=== PATIENT | male | born 1965 | race Caucasian/White ===

== ENCOUNTER 2018-04-16 18:39 | Emergency (ER) | payer OTHER ==
[2018-04-16] MEDS ORDERED: APIXABAN 5 MG TAB PO ONE (18:56)
--- NOTE | 2018-04-16 18:56 | EDPHY ---
H & P Stated Complaint: from ultrasound +DVT L leg Time Seen by Provider: 04/16/18 18:52 HPI/ROS: HPI: This is a 52-year-old male who presents with Chief Complaint: Left leg DVT with positive ultrasound Location: Left calf Quality: Injury, swelling, bruising Duration: 6 days Signs and Symptoms: No bleeding, no radiation, no numbness, no weakness, no tingling, no incontinence, no decreased range of motion, + swelling, + pain, no fever, no chest pain, no palpitations, no shortness of breath Timing: Acute Severity: [id number] Context: Patient reports that he was skiing approximately 6 days ago and hit his left calf with his ski. He reports that he felt almost a popping sensation in left calf. He reported swelling and bruising over the next several days. He went to [facility] today and had x-rays that showed no fracture per the patient and was sent to [facility] for ultrasound imaging of the left calf. The ultrasound showed thrombus in 1 of the 2 paired peroneal veins in the proximal calf as well as involving intramuscular soleal vein branch. No evidence of DVT above the knee. No recent long distance travel. Nonsmoker. No history of clotting disorders in the family. Orthopedics placed patient in left Saldaña boot. Denies radiation, weakness, decreased range of motion. Modifying Factors: See above Comment: ROS: A comprehensive 10 system review of systems is otherwise negative aside from elements mentioned in the history of present illness. MEDICAL/SURGICAL/SOCIAL HISTORY: Medical history: Hypertension, hyperlipidemia Surgical history: Denies Social history: Nonsmoker, employed, . CONSTITUTIONAL: Well-developed, well-nourished, middle-aged white male, awake and alert, no obvious distress HEENT: Atraumatic and normocephalic. NECK: supple, no midline tenderness Cardiovascular: Normal S1/S2, regular rate, regular rhythm, without murmur rub or gallop. PULMONARY/CHEST: Symmetrical and nontender. no crepitus. Clear to auscultation bilaterally. Good air movement. No accessory muscle usage. ABDOMEN: Soft, nondistended, nontender. EXTREMITIES: 2/2 pulses, strength 5/5, left calf is twice the size of his right calf. There is significant ecchymosis and positive Homans sign. Left KNEE: no effusion, no medial and lateral joint line tenderness, full extension to 180, flexion to 120. No pain with varus and valgus exam. No pain with anterior drawer or posterior drawer test. Extensor mechanism intact. Left Ankle : Plantar flexion to 50, dorsiflexion to 20. Foot inversion to 35 degree. No tenderness/swelling Anterior talofibular ligament. No tenderness/swelling Calcaneofibular ligament, no tenderness/swelling posterior talofibular ligament , no tenderness/swelling posterior inferior tibiofibular ligament. Achilles tendon intact. DIP/PIP/MCP flexion/extension intact with good light touch sensation. no deformities, no clubbing, no cyanosis or edema. NEUROLOGICAL: no focal neuro deficits. GCS 15. Light touch sensation intact. SKIN: Warm and dry, no erythema. no rash. Good capillary refill. Source: Patient Exam Limitations: No limitations - Medical/Surgical History Hx Asthma: No Hx Chronic Respiratory Disease: No Hx Diabetes: No Hx Cardiac Disease: No Hx Renal Disease: No Hx Cirrhosis: No Hx Alcoholism: No Hx HIV/AIDS: No Hx Splenectomy or Spleen Trauma: No Other PMH: htn. hyperlipidemia - Social History Smoking Status: Never smoked Constitutional: Initial Vital Signs Temperature (C) 36.7 C 04/16/18 18:43 Heart Rate 75 04/16/18 18:43 Respiratory Rate 16 04/16/18 18:43 Blood Pressure 160/90 H 04/16/18 18:43 O2 Sat (%) 97 04/16/18 18:43 O2 Delivery Mode Room Air Allergies/Adverse Reactions: No Known Allergies Allergy (Unverified 04/16/18 18:42) Home Medications: Medication Instructions Recorded Apixaban [Eliquis 30-day Starter 1 kit PO AD #1 kit 04/16/18 Pack] Fenofibrate 04/16/18 HCTZ (*) 04/16/18 Medical Decision Making - Diagnostics Imaging Results: Imaging Impressions Extremity Venous Study 04/16/18 17:53 Impression: 1. Thrombus in one of the 2 paired peroneal veins in the proximal calf as well as involving intramuscular soleal vein branch. 2. No evidence of DVT above the knee. Findings discussed with Aurea Rey at 18:30 hour, 04/16/2018. ED Course/Re-evaluation: Vital signs reviewed and show mildly elevated blood pressure I-STAT H&H, coags, renal function ordered H&H stable. Please note, Coags and BMP not drawn by nursing staff prior to discharge. Given Eliquis 10 mg in the emergency room and 30 day starter pack No signs of neurovascular compromise/tenting of skin/compartment syndrome/ extremities and joints examined above and below area of concern and are neurovascularly intact/cellulitis. This patient was seen under the supervision of my secondary supervising physician. I evaluated care for this patient independently. Discussed this patient with Dr. Clifton who did not see the patient. Differential Diagnosis: Leg swelling including but not limited to hypoalbuminemia, congestive heart failure, cor pulmonale, chronic venous stasis and DVT. - Data Points Laboratory Results: Laboratory Results 04/16/18 19:00 04/16/18 19:00 WBC 5.96 10^3/uL 10^3/uL (3.80-9.50) RBC 4.86 10^6/uL 10^6/uL (4.40-6.38) Hgb 15.2 g/dL g/dL (13.7-17.5) Hct 44.2 % % (40.0-51.0) MCV 90.9 fL fL (81.5-99.8) MCH 31.3 pg pg (27.9-34.1) MCHC 34.4 g/dL g/dL (32.4-36.7) RDW 12.5 % % (11.5-15.2) Plt Count 251 10^3/uL 10^3/uL (150-400) MPV 11.3 fL fL (8.7-11.7) Neut % (Auto) 51.7 % % (39.3-74.2) Lymph % (Auto) 32.7 % % (15.0-45.0) [place] % (Auto) 12.4 % % (4.5-13.0) Eos % (Auto) 2.3 % % (0.6-7.6) Baso % (Auto) 0.7 % % (0.3-1.7) Nucleat RBC Rel Count 0.0 % % (0.0-0.2) Absolute Neuts (auto) 3.08 10^3/uL 10^3/uL (1.70-6.50) Absolute Lymphs (auto) 1.95 10^3/uL 10^3/uL (1.00-3.00) Absolute Monos (auto) 0.74 10^3/uL 10^3/uL (0.30-0.80) Absolute Eos (auto) 0.14 10^3/uL 10^3/uL (0.03-0.40) Absolute Basos (auto) 0.04 10^3/uL 10^3/uL (0.02-0.10) Absolute Nucleated RBC 0.00 10^3/uL 10^3/uL (0-0.01) Immature Gran % 0.2 % % (0.0-1.1) Immature Gran # 0.01 10^3/uL 10^3/uL (0.00-0.10) Medications Given: Discontinued Medications Apixaban (Eliquis) 10 mg PO EDNOW ONE Stop: 04/16/18 18:57 Last Admin: 04/16/18 19:15 Dose: 10 mg Departure - Departure Disposition: Home, Routine, Self-Care Clinical Impression: Left peroneal vein thrombosis Condition: Good Instructions: Apixaban (By mouth), Deep Vein Thrombosis (ED) Additional Instructions: Please take Eliquis as directed. Do not skip a dose. From the emergency room you will receive a started pack that is only for 1 month. Please understand that you will need to be on this medication for a minimum of 3 months. Continue to wear walking boot as directed per Orthopedics. Please follow-up with your primary care provider in the next 1-2 weeks. Follow-up with Orthopedics as directed. Referrals: ISIDRO MONTIEL [Other] - 5-7 days, call for appt. Prescriptions: Apixaban [Eliquis 30-day Starter Pack] 1 kit PO AD #1 kit
[2018-04-16 19:17] LABS: PLATELET COUNT 251 10^3/uL (150-400)
[2018-04-16 19:28] VITALS: BP 137/104
--- NOTE | 2018-04-17 17:35 | ASMTCMCOM ---
CM Note CM Note Notes: Late entry from 04/16/18: Pt provided an Eliquis $10 co-pay kit upon discharge. 04/17/18: Received a call from pt's , Hoda Cleveland ([phone]) this morning around 9:30am and she states they took the Eliquis 30-day Starter Pack Rxn to their usual [facility] pharmacy but they do not have the specific starter packs in stock; Hoda Cleveland said she called [facility] and they don't either. This CM called [facility] and they also said they are out of stock, which is unusual. This CM called [facility] in [place] and spoke w/a pharmacist; CM requested they change the Rxn from the specific 30-day starter pack to just 5mg tabs and w/the starter pack instructions (10mg BID for 7 days and then 5mg BID for the remaining 23 days). The pharmacist was able to confirm that they would be able to get this Rxn filled for the pt as soon as possible this morning. CM called Hoda Cleveland back and let her know. CM available for further assistance if needed. Date Signed: 04/17/2018 05:33 PM Electronically Signed By:Georgette Mayo RN
== END 2018-04-16 19:35 | disposition home or self-care (01) ==
LOC: EDSTATUS 18:39
DX: I82.4Z2 Acute embolism and thrombosis of unspecified deep veins of left distal lower extremity (principal)